=== PATIENT | female | born 1940 | race Two or more races ===

== ENCOUNTER 2017-11-17 12:22 | Outpatient (CLI) | payer OTHER | END 2017-11-17 15:04 | disposition home or self-care (01) | LOC: MRI 12:22 | DX: M48.07 Spinal stenosis, lumbosacral region (principal) ==

== ENCOUNTER 2017-11-18 10:55 | Outpatient (CLI) | payer OTHER | END 2017-11-18 11:15 | disposition home or self-care (01) | LOC: MRI 10:55 | DX: M48.07 Spinal stenosis, lumbosacral region (principal); M51.27 Other intervertebral disc displacement, lumbosacral region | CPT/HCPCS: 72148 ==

== ENCOUNTER 2020-03-23 08:21 | Emergency (ER) | payer OTHER ==
[~2020-03-23] VITALS: Ht 160 cm; Wt 59.0 kg
== END 2020-03-23 13:01 | disposition home or self-care (01) ==
LOC: ER 08:21
DX: S82.035A Nondisplaced transverse fracture of left patella, initial encounter for closed fracture (principal); W01.198A Fall on same level from slipping, tripping and stumbling with subsequent striking against other object, initial encounter; Y93.89 Activity, other specified; Y92.038 Other place in apartment as the place of occurrence of the external cause; Y99.8 Other external cause status

== ENCOUNTER 2020-03-26 09:47 | Outpatient (CLI) | payer OTHER | END 2020-03-26 09:54 | disposition home or self-care (01) | LOC: RAD 09:47 | PROVIDERS: ATTEND Orthopaedic Surgery | DX: S82.035A Nondisplaced transverse fracture of left patella, initial encounter for closed fracture (principal); M25.562 Pain in left knee ==

== ENCOUNTER 2020-06-26 10:30 | Outpatient (CLI) | payer OTHER | END 2020-06-26 10:34 | disposition home or self-care (01) | LOC: NUCLEAR 10:30 | PROVIDERS: ATTEND Orthopaedic Surgery | DX: M81.0 Age-related osteoporosis without current pathological fracture (principal) ==

== ENCOUNTER 2020-07-04 12:19 | Outpatient (CLI) | payer OTHER | END 2020-07-04 12:23 | disposition home or self-care (01) | LOC: RAD 12:19 | PROVIDERS: ATTEND Orthopaedic Surgery | DX: S82.035D Nondisplaced transverse fracture of left patella, subsequent encounter for closed fracture with routine healing (principal) ==

== ENCOUNTER 2020-07-27 12:19 | Outpatient (CLI) | payer OTHER | END 2020-07-27 12:27 | disposition home or self-care (01) | LOC: RAD 12:19 | PROVIDERS: ATTEND Specialist | DX: J45.998 Other asthma (principal) ==

== ENCOUNTER 2020-08-28 13:47 | Outpatient (CLI) | payer OTHER | END 2020-08-29 10:40 | disposition home or self-care (01) | LOC: TOM 13:47 | PROVIDERS: ATTEND Specialist | DX: G46.3 Brain stem stroke syndrome (principal) ==

== ENCOUNTER 2021-07-15 07:57 | Outpatient (CLI) | payer OTHER | END 2021-07-15 08:00 | disposition home or self-care (01) | LOC: LAB 07:57 | DX: J84.9 Interstitial pulmonary disease, unspecified (principal) ==

== ENCOUNTER 2023-05-16 08:09 | Outpatient (CLI) | payer OTHER | END 2023-05-16 08:15 | disposition home or self-care (01) | LOC: RAD 08:09 | DX: M54.59 Other low back pain (principal); M54.2 Cervicalgia; M54.6 Pain in thoracic spine; M79.12 Myalgia of auxiliary muscles, head and neck; M54.16 Radiculopathy, lumbar region; M99.01 Segmental and somatic dysfunction of cervical region; M99.03 Segmental and somatic dysfunction of lumbar region; M99.05 Segmental and somatic dysfunction of pelvic region ==